=== PATIENT | female | born 1985 | race Caucasian/White ===

== ENCOUNTER 2020-09-02 10:20 | Outpatient (CLI) | payer OTHER, SELFPAY ==
[2020-09-02 10:45] VITALS: BP 124/82; PULSE 84
[2020-09-02 10:59] LABS: Basophils Percent Auto 0.3 % (0.2-1.2); Eosinophils Percent Auto 0.4 % (0-4.4); Hematocrit 37.6 % (37.0-47.0); Hemoglobin 13.1 g/dL (12.0-15.0); Immature Granulocyte Absolute 0.03 K/mm3 (0.00-0.031); Immature Granulocyte Percent A 0.3 % (0-0.5); Lymphocytes Absolute Auto 1.13 K/mm3 (0.9-3.2); Lymphocytes Percent Auto 10.6 % (18.3-44.2); Mean Corpuscular HGB Conc 34.8 g/dl (32-36); Mean Corpuscular Hemoglobin 30.3 pg (26-34); Mean Platelet Volume 10.8 fl (7.4-10.4); Monocytes Absolute Auto 0.8 K/mm3 (0.1-0.6); Monocytes Percent Auto 7.4 % (2.6-8.5); Neutrophils Absolute Auto 8.6 K/mm3 (1.3-6.7); Platelet Count Result 226 k/mm3 (150-375); Red Blood Count 4.32 M/mm3 (4.2-5.4); Red Cell Distribution Width 12.2 % (11.5-14.5); White Blood Count 10.6 K/mm3 (4.5-10.0)
[2020-09-02 11:00] VITALS: BP 123/80; PULSE 75
[2020-09-02 11:00] LABS: Add Urine Microscopic? NO; Appearance Urine Clear (Clear); Bilirubin Urine Negative (Negative); Blood Urine Negative (Negative); Color Urine Straw (Yellow); Glucose Urine UA Negative (Negative); Ketones Urine Negative (Negative); Leukocyte Esterase Ur Negative LEU/UL (NEGATIVE); Nitrate Urine Negative (Negative); Protein Urine Negative (Negative); Specific Grav Ur 1.009 (1.001-1.035); Urobilinogen Urine Negative mg/dL (<2.0)
[2020-09-02 11:14] LABS: Creatinine Urine 38.8 mg/dL; Total Protein Urine Random 13 mg/dL
[2020-09-02 11:15] VITALS: BP 124/76; PULSE 77
[2020-09-02 11:30] VITALS: BP 120/79; PULSE 78
[2020-09-02 11:30] LABS: Alanine Aminotransferase 16 U/L (4-35); Albumin Level 3.4 g/dL (3.5-5.1); Alkaline Phosphatase 110 U/L (38-126); Anion Gap 7 mmol/L (8-16); Aspartate Amino Transferase 27 U/L (14-36); Bilirubin,Total 0.5 mg/dL (0.2-1.3); Blood Urea Nitrogen 8 mg/dL (7-17); Carbon Dioxide 21 mmol/L (22-30); Chloride 106 mmol/L (98-107); Estimated Glomerular Filt Rate > 60; Glucose 81 mg/dL (65-105); Potassium 4.6 mmol/L (3.4-5.0); Sodium 134 mmol/L (137-145); Uric Acid 3.9 mg/dL (2.5-7.5)
== END 2020-09-02 11:40 | disposition home or self-care (01) ==
LOC: ANHOBOP 10:26 → ANHOBPP 10:27
PROVIDERS: Advanced Practice Midwife; PCP Internal Medicine; Visit Provider Obstetrics & Gynecology
DX: O16.3 Unspecified maternal hypertension, third trimester (principal); Z3A.39 39 weeks gestation of pregnancy
CPT/HCPCS: 36415; 59025; 80053; 81003; 82570; 84156; 84550; 85025; 87086; 87088; 99199

== ENCOUNTER 2020-09-09 06:02 | Inpatient (IN) | payer OTHER, SELFPAY ==
[2020-09-09] VITALS (204 sets, daily range): BP systolic 88–145; BP diastolic 19–108; PULSE 32–129; RESP 18; TEMP 36.3–37.4; O2SAT 75–100; BMI 31.8
[2020-09-09 06:41] LABS: Basophils Percent Auto 0.3 % (0.2-1.2); Eosinophils Absolute Auto 0.1 K/mm3 (0-0.3); Eosinophils Percent Auto 0.8 % (0-4.4); Hemoglobin 12.9 g/dL (12.0-15.0); Immature Granulocyte Absolute 0.04 K/mm3 (0.00-0.031); Immature Granulocyte Percent A 0.4 % (0-0.5); Lymphocytes Absolute Auto 1.06 K/mm3 (0.9-3.2); Lymphocytes Percent Auto 9.5 % (18.3-44.2); Mean Corpuscular HGB Conc 34.9 g/dl (32-36); Mean Corpuscular Hemoglobin 30.1 pg (26-34); Mean Corpuscular Volume 86.2 fl (80-100); Mean Platelet Volume 10.6 fl (7.4-10.4); Monocytes Absolute Auto 0.7 K/mm3 (0.1-0.6); Monocytes Percent Auto 6.1 % (2.6-8.5); Neutrophils Absolute Auto 9.3 K/mm3 (1.3-6.7); Neutrophils Percent Auto 82.9 % (45.5-73.1); Platelet Count Result 225 k/mm3 (150-375); Red Blood Count 4.29 M/mm3 (4.2-5.4); Red Cell Distribution Width 12.4 % (11.5-14.5); White Blood Count 11.2 K/mm3 (4.5-10.0)
[2020-09-09] MEDS: LACTATED RINGERS 1,000 ML 125 ML IV CONT ×2 (06:49→08:57)
[2020-09-09] MEDS: OXYTOCIN 30 UNITS/NS 500 ML 30 UNITS/500 ML BAG 6 UNITS IV CONT (06:49)
--- NOTE | 2020-09-09 07:48 | WPDOBADMIT ---
Obstetrics - Admit Note Admission Note: record reviewed. No pertinent additions to the history and/or any subsequent changes in the physical findings that are not consistent with the expected course of the were found. EIL at 40 weeks, SVE 3-4/80/-1 AROM small amount of clear odorless fluid Additions to the history and/or subsequent changes in the physical findings follow. None.
--- NOTE | 2020-09-09 08:42 | WPDANESEPPF ---
Anes - Initial Pre Proc Eval Date/Time: 09/09/20 08:42 Surgeon: Vernell Presley MD Pre Op Diagnosis: Induction of Labor Patient Data Age: 35 Gender: F Height: 1.73 m Weight: 95.09 kg Last Vital Signs Pulse 74 09/09/20 08:30 BP 121/68 09/09/20 08:30 Allergies Allergy/AdvReac Type Severity Reaction Status Date / Time No Known Allergies Allergy Verified 08/12/20 12:34 Home Medications Medication Instructions Recorded Confirmed Type PNV cmb#95-ferrous fumarate-FA 1 tablet PO DAILY 08/12/20 08/12/20 History [] levothyroxine 50 mcg PO DAILY 08/12/20 08/12/20 History sertraline 50 mg PO DAILY 08/12/20 08/12/20 History Laboratory Tests 09/09/20 09/09/20 09/09/20 06:26 06:26 06:26 WBC 11.2 K/mm3 H K/mm3 (4.5-10.0) RBC 4.29 M/mm3 M/mm3 (4.2-5.4) Hgb 12.9 g/dL g/dL (12.0-15.0) Hct 37.0 % % (37.0-47.0) MCV 86.2 fl fl (80-100) MCH 30.1 pg pg (26-34) MCHC 34.9 g/dl g/dl (32-36) RDW 12.4 % % (11.5-14.5) Plt Count 225 k/mm3 k/mm3 (150-375) MPV 10.6 fl H fl (7.4-10.4) Immature Gran % (Auto) 0.4 % % (0-0.5) Neut % (Auto) 82.9 % H % (45.5-73.1) Lymph % (Auto) 9.5 % L % (18.3-44.2) [place] % (Auto) 6.1 % % (2.6-8.5) Eos % (Auto) 0.8 % % (0-4.4) Baso % (Auto) 0.3 % % (0.2-1.2) Lymph # (Auto) 1.06 K/mm3 K/mm3 (0.9-3.2) [place] # (Auto) 0.7 K/mm3 H K/mm3 (0.1-0.6) Eos # (Auto) 0.1 K/mm3 K/mm3 (0-0.3) Baso # (Auto) 0.0 K/mm3 K/mm3 (0.0-0.1) Abs Immat Gran (auto) 0.04 K/mm3 H K/mm3 (0.00-0.031) Absolute Neuts (auto) 9.3 K/mm3 H K/mm3 (1.3-6.7) Absolute Nucleated RBC 0.0 K/mm3 K/mm3 (0.0-0.012) Nucleated RBC % 0.0 % % (0.0-0.2) RPR Pending Blood Type A Negative Antibody Screen Negative Patient hx anesthesia problems: none Family hx anesthesia problems: none [facility] Past Medical History Medical History (Updated 09/09/20 @ 08:42 by Zacarias Gomez MD) Anxiety Hypothyroidism Family History Family History (Updated 08/12/20 @ 12:38 by Norberto Diaz RN) Mother Hypothyroid Social History Social History Smoking status: Never smoker Second hand tobacco smoke exposure: No Substance use: never Spiritual care concerns: No Anes - Eval Final PreProcedure Day of Procedure 09/09/20 08:42 Patient weight: overweight Heart: regular rate and rhythm Lungs: clear to auscultation and normal air movement Airway: Mallampati scale class II Neurological: alert and oriented Last oral intake: >/= 8 hours ASA classification: II Emergent: no Anesthetic plan: proceed Anesthesia type and monitoring: regional epidural Informed Consent: The patient's anesthetic plan and its attendant risks and benefits were discussed with the patient/family/POA. Questions were solicited and answers provided to the satisfaction of the patient/family/POA.
[2020-09-09 08:57] LABS: Rapid Plasma Reagin Non-Reactive (NonReactive)
[2020-09-09] MEDS: SODIUM CHLORIDE 0.9% IV 300 ML 600 ML I-UTERINE (12:52)
--- NOTE | 2020-09-09 16:35 | P.PCNOB_ITS ---
OB - Delivery Note Procedure Delivery date: 09/09/20 Procedure: Vaginal . Intrapartal events: Extended Bradycardia Induction method: AROM and per pitocin protocol Delivery monitor: internal FHT and internal uterine Route of delivery: vacuum extraction Indication for instrumentation: nonreassuring FHR tracing Episiotomy description: None Laceration Description: Perineal - 2nd Degree Delivery repair: vicryl Specimen: No Estimated blood loss (mL): 300 Anesthesia type: Epidural Disposition: other () [place] Baby Date of : 09/09/20 Time of : 16:21 Weeks of gestation at delivery: 40 Infant gender: Female Weight (pounds): 6 Weight (ounces): 12 presentation: vertex position: Right Occiput Anterior Placenta delivery description: Spontaneous cord vessel description: 3 Vessels and Clamped/Cut score one minute: 7 score five minutes: 8 Narrative: CNM at bedside bradycardia. Kiwi placed. 1 pull through 1 contraction, no pop offs. Baby delivered and handed to nursery. Mother and baby in stable condition.
[2020-09-09] MEDS: OXYTOCIN 30 UNITS/NS 500 ML 30 UNITS/500 ML BAG 125 UNITS IV CONT (16:55)
[2020-09-09] MEDS: BENZOCAINE 20% AER SPR (*SP) 56 GM CAN 1 SPRAY TOPICAL (19:20)
[2020-09-09] MEDS: WITCH HAZEL 40 PADS 1 PAD TOPICAL (19:20)
--- NOTE | 2020-09-09 19:34 | OBPPTRN ---
Patient transferred to post room # 286 via wheelchair. Support person and present. Oriented to unit, room, information board, rooming in, admission packet and security measures. Patient verbalizes understanding.
--- NOTE | 2020-09-09 19:34 | OBPPTRN ---
Patient transferred to post room # via ( ). Support person present. Oriented to unit, room, information board, rooming in, admission packet and security measures. Patient verbalizes understanding.
[2020-09-10] MEDS: IBUPROFEN 600 MG TABLET PO ×3 (04:03→16:23)
[2020-09-10 05:09] LABS: Hematocrit 33.7 % (37.0-47.0); Hemoglobin 11.2 g/dL (12.0-15.0)
[2020-09-10] MEDS: MULTIVIT/MIN/PREN/FOL AC/IRON TABLET 1 TAB PO (06:58)
[2020-09-10] MEDS: LEVOTHYROXINE SODIUM 50 MCG TABLET PO (06:59)
[2020-09-10] MEDS: DOCUSATE SODIUM 100 MG CAPSULE PO ×2 (06:59→16:23)
--- NOTE | 2020-09-10 07:30 | PC.NURSE ---
Nipple shield provided to mother due to flat and sore nipple on left breast. Instructions given on application and cleaning of shield. Discussed nipple shield precautions and possible complications. Patient able to return demonstration on proper application of shield. Discussed the need to initiate pumping if continues to nurse with the shield. Patient verbalizes understanding.
--- NOTE | 2020-09-10 07:52 | PM.OBPNVD ---
OB - PN: Subj Subjective Date/time seen: 09/10/20 07:52 Patient comments: no complaints baby status: doing well OB - PN: Obj Data Labs CBC & Chem 7: 09/10/20 04:13 Labs: Laboratory Results - last 24 hr 09/09/20 09/10/20 09/10/20 06:26 04:13 04:13 Hgb 11.2 L Hct 33.7 L RPR Non-reactive Blood Type A Negative Antibody Screen Negative Screen Negative Baby's Blood Type O pos Baby's JOSH Negative Doses of RhIg Required 1 OB - PN A/P Plan day: 1 Plan: routine care Time Spent With Patient Time: Total time spent is greater than 50% in coordination of care (as documented) at patient's floor/unit and/or counseling patient: Time with patient: less than 15 minutes Review of Systems Review of Systems: All systems reviewed & are unremarkable except as noted in HPI and below Exam Narrative: Exam Narrative: Fundus firm and vaginal flow controlled. No lower ext redness, warmth, or edema. Negative homans. Const: General: comfortable Chest: Breast/axilla inspection: normal inspection of the breasts Resp: Effort & Inspection: normal respiratory effort Cardio: Rate: regular rate GI: GI Palp: Yes Soft to palpation Psych: Appearance: grossly normal Affect: normal affect Attitude: cooperative Thought content: Yes Normal thought content present Judgement: Good judgement present (Psych)
[2020-09-10 08:00] VITALS: BP 105/65; PULSE 58; PULSE 59; RESP 20; TEMP 36.8; TEMP 37.1
[2020-09-10] MEDS: RHO(D) IMMUNE GLOBULIN 300 MCG SYRINGE IM (12:05)
--- NOTE | 2020-09-10 13:22 | WPDANLDPN2 ---
Anes-Prog Note L&D Date/Time: 09/10/20 13:22 Comfortable throughout: labor and delivery Neuraxial method: epidural Epidural/Spinal procedure site: clean & non-tender Neuro status: Neuro function grossly intact. Cardiovascular status: normal Respiratory status: normal Airway patency: baseline Mental status: baseline Post-Op hydration status: normal Vital Signs: Last Vital Signs Temp 98.8 F 09/10/20 08:00 Pulse 59 L 09/10/20 08:00 Resp 20 09/10/20 08:00 BP 105/65 09/10/20 08:00 Pulse Ox 98 09/09/20 19:40 Pain score (VAS): 0/10 I/O: Intake & Output 09/09/20 09/10/20 09/10/20 23:59 07:59 15:59 Intake Total 1000 Output Total 78 Balance 922 Patient feedback: Patient satisfied with anesthetic care.
[2020-09-10] MEDS: BENZOCAINE 20% AER SPR (*SP) 56 GM CAN 1 SPRAY TOPICAL (16:23)
[2020-09-10] MEDS: WITCH HAZEL 40 PADS 1 PAD TOPICAL (16:23)
[2020-09-10 19:45] VITALS: BP 106/67; PULSE 71; RESP 16; TEMP 36.4
--- NOTE | 2020-09-11 07:00 | PC.NURSE ---
PT introductions made and plan of care discussed per post , pain management, breast/bottle feeding, daily care activities and pending discharge to home. PT verbalized understanding of such care.
[2020-09-11 07:40] VITALS: BP 110/72; PULSE 59; RESP 18; TEMP 36.6; O2SAT 98
[2020-09-11] MEDS: LEVOTHYROXINE SODIUM 50 MCG TABLET PO (07:42)
--- NOTE | 2020-09-11 08:27 | PM.OBPNVD ---
OB - PN: Subj Subjective Date/time seen: 09/11/20 08:27 Patient comments: no complaints baby status: doing well OB - PN: Obj Data Labs CBC & Chem 7: 09/10/20 04:13 Labs: Laboratory Results - last 24 hr 09/10/20 04:13 Blood Type A Negative Antibody Screen Negative Screen Negative Baby's Blood Type O pos Baby's JOSH Negative Doses of RhIg Required 1 OB - PN A/P Plan day: 2 Plan: routine care and discharge home (F/U in 4 weeks) Time Spent With Patient Time: Total time spent is greater than 50% in coordination of care (as documented) at patient's floor/unit and/or counseling patient: Time with patient: less than 15 minutes Review of Systems Review of Systems: All systems reviewed & are unremarkable except as noted in HPI and below Exam Narrative: Exam Narrative: Fundus firm and vaginal flow controlled. No lower ext redness, warmth, or edema. Negative homans. Const: General: comfortable Chest: Breast/axilla inspection: normal inspection of the breasts Resp: Effort & Inspection: normal respiratory effort Cardio: Rate: regular rate GI: GI Palp: Yes Soft to palpation Psych: Appearance: grossly normal Affect: normal affect Attitude: cooperative Thought content: Yes Normal thought content present Judgement: Good judgement present (Psych)
[2020-09-11 09:45] VITALS: PULSE 59; RESP 18; O2SAT 98
[2020-09-11] MEDS: SERTRALINE HCL 50 MG TABLET PO (09:58)
[2020-09-11] MEDS: DOCUSATE SODIUM 100 MG CAPSULE PO (09:58)
--- NOTE | 2020-09-11 10:30 | PC.NURSE ---
Consulted with patient, mother reports she is using a nipple shield for all feedings and has tenderness with latch and on and off during the feeding. Mother is pumping and supplementing after all feedings Discussed nipple shield precautions and possible complications. Instructions given on application and cleaning of shield. Patient able to return demonstration on proper application of shield. Discussed the need to initiate pumping if continues to nurse with the shield. Patient verbalizes understanding. Reviewed infant feeding cues, frequencies, duration of feedings, feeding elimination flow sheet, and signs of adequate intake. Demonstrated stimulation techniques to wake for feeding. Assisted with infant to breast with out shield. Nipples have a low profile, demonstrated how to roll out nipple before attempting latch. Reviewed positioning/alignment in cross cradle, holding breast in U hold and guided asymmetrical latch on. Discussed rational for each. Within a few attempts, infant was able to latch correctly. nursed sleepily with good bursts of steady draws and occasional swallowing followed with long pausing. Reviewed signs of a correct latch, effective nursing and suck swallow ratio. Infant was able to maintain latch without discomfort to mother. Nipple care reviewed. Suggested to stimulate while feeding to keep awake and nursing effectively for increased intake and to assist with maintaining deep latch. Instructed mother to call out for RN assistance if she is unable to latch infant for feeding or she has discomfort with nursing. Instructed feeding should be initiated three hours from start of last feeding or if feeding cues are noted before. Mother voiced understanding of information shared. Mother is able to independently latch with appropriate positioning/alignment, if unable to latch without shield or has discomfort advised to use shield. She is feeding as required and waking infant to feed if needed. has had several feedings at the breast with shield followed with supplementation in the past 24 hours, and is currently meeting outcomes for weight, output, jaundice and feeding frequencies. Mother states she feels confident to continue current feeding plan at home. Discussed when may need to increase supplementation and when ready to decrease/discontinue supplementation. Advised not to discontinue until discussion with her ICP. Reviewed transition to breast milk, signs of adequate intake, and engorgement/relief. Instructed to call ICP if intake/output less than required. Reviewed regular medications mother is taking. Information provided per Mayda. Reviewed community resources on the [employer] website and in the Mom/Baby guide. Information on outpatient services provided. Mother has no further questions at this time.
--- NOTE | 2020-09-11 12:15 | PC.NURSE ---
PT received discharge instructions per protocol and verbalized understanding of such care
--- NOTE | 2020-09-11 12:57 | PC.NURSE ---
PT discharged to home ambulatory accompanied by spouse and and taken to waiting car. follow up appts confirmed
--- NOTE | 2020-09-12 03:07 | PM.OBDSVD ---
DS: Admitting Diagnosis Admitting Diagnosis Admitting Diagnosis: Induction of Labor OB - DS: Summary OB Procedures : None OB Procedures Intrapartum: Spontaneous Vag Delivery OB Procedures: : None Time Spent with Patient Time attestation: Total time spent providing and/or coordinating discharge services: Discharge Plan Discharge Attending physician on discharge: Vernell Presley Discharging Clinician: Lisandra Augustin Patient Disposition: Home, Self-Care Activity: pelvic rest Diet: as tolerated Discharge Instructions: Education: Mom and Baby Guide Given to: Mother Follow-Up: Call your delivering provider's office for an appointment to be seen in: 4 Weeks Mom and baby should come to the [facility] for the follow-up appointment. Appointment Date/Time: September 12, 2020 at 11:00 am What to expect at your follow-up visit: Blood Pressure Check Call [phone] if you are unable to keep your appointment time. BREAST CARE: * Wear a snug supportive bra. * For engorgement discomfort: Breast Feeding: * Apply warm moist washcloths * Express milk as needed to relieve engorgement * Wear loose clothing Bottle Feeding: * May apply ice packs * For sore nipples: * Identify correct latch-on * Apply warm moist washcloths before and after nursing * Air dry nipples after nursing * May apply Lansinoh cream to nipples PERINEAL CARE * Until bleeding stops, use your ruma bottle after urinating * Change your pad frequently throughout the day * You may take sitz baths several times a day (fill your bathtub with warm water and soak for 20 minutes.) Do NOT bathe in the water * No tub baths until seen by your physician - You may shower ACTIVITY: * Rest as much as possible. * Do not exercise or lift anything heavier than your baby (such as laundry or other children.) * Avoid stairs or driving as much as possible. * Do not put anything into the vagina. No douching, tampons, or sexual activity until seen by physician. NOTIFY PHYSICIAN IF YOU HAVE ANY QUESTIONS OR IF ANY OF THE FOLLOWING SYMPTOMS OCCUR: * If your perineum becomes red, swollen, or more painful than what you have experienced in the hospital. * If your vaginal bleeding becomes foul smelling. * If your vaginal bleeding becomes more heavy than a period or if your bleeding changes from pink to bright red. However, you may pass an occasional walnut-sized clot once or twice for the first week . * If you experience a sharp, shooting pain in you calves. * If you discover a hard, reddened area on your breast or if you experience flu-like symptoms. * If you have a fever of 100.4 or greater DIET: * Eat regular, well-balanced meals. * Drink plenty of fluids daily. If , drink to thirst. Patient Instructions: Antibiotic Form Stand Alone Forms: General Discharge Information Follow-up/Referrals: Leeann Barone CNM [Certified Nurse Medical Transcriptionist] - Discharge Medications: Continued levothyroxine 50 mcg Tablet 50 mcg PO DAILY RF: 0 sertraline 50 mg Tablet 50 mg PO DAILY RF: 0 PNV cmb#95-ferrous fumarate-FA [] 28 mg iron- 800 mcg Tablet 1 tablet PO DAILY RF: 0 Date of admission: 09/09/20 06:02 Primary Care Provider: AnyaIrvin Admitting Provider: Vernell Presley Attending physician on admission: Vernell Presley Condition: Stable
[2020-09-12 11:52] VITALS: BP 118/82; PULSE 67; RESP 20; TEMP 36.8; O2SAT 100
--- OUTSIDE RECORDS SUMMARY | 2020-09-16 10:01 | XMS_ITS ---
:1985 Author Care Team Providers Name Role Phone Lorenzo Presley Primary Care Provider Unavailable Allergies Code Code System Name Reaction Severity Status Onset NKDA ? Medications Name Status Start Date Stop Date ? ? Boostrix Tdap 2.5 Lf unit-8 mcg-5 Active ? Not available Lf/0.5 mL intramuscular syringe Flucelvax Quad 60 mcg (15 mcg Completed ? 04/24/2020 x 4)/0.5 mL intramuscular susp Fluzone Quad 0567-2775 (PF) 60 mcg (15 Active ? Not available mcg x 4)/0.5 mL IM syringe levothyroxine 25 mcg tablet Active ? Not available + DHA Active ? Not available sertraline 50 mg tablet Active ? Not avai lable Problems Name Status Onset Date Source ? Active 03/07/2020 ? 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 Procedures Date Name Performed by ? ? Repair of Tendo Achilles Information not available ? Repair of Tendo Achilles Information not available 04/24/2020 US, Obstetric, 2Nd or 3Rd Trimester Delisa nieves [address] [place] [address] (Work [address]) Results Lab Results Date Name Specimen Result Interpretation Description Value Range Status Address ? 08/12/2020 TSH, Serum ? TSH Reflex 1.13 mU/L 0.27-4.2 0 Final [facility] or Plasma to FT4
--- OUTSIDE RECORDS SUMMARY | 2020-09-16 10:01 | XMS_ITS | Encounter Summary ---
:1985 Author Reason for Visit OB visit 35wks 2days Assessment and Plan 1. Routine care Discussion Note: None recorded.Patient educational handouts: No information available. Plan of Care Reminders Provider Appointments Repeat on or around Raul Ojeda 10/20/2020 CNM Lab None ? ? recorded. Referral None ? ? recorded. Procedures None ? ? recorded. Surgeries None ? ? recorded. Imaging None ? ? recorded. Medications Name Start Date ? ? Boostrix Tdap 2.5 Lf unit-8 mcg-5 Lf/0.5 mL intramuscu lar syringe ? Fluzone Quad (PF) 60 mcg (15 mcg x 4)/0.5 mL IM syringe ? levothyroxine 25 mcg tablet ? + DHA ? sertraline 50 mg tablet ? Medications Administered None recorded. Vitals Height Weight BMI Blood Pressure 5 ft 8 in 206 lbs 31.3 kg/m2 110/84 mm[Hg] Results Lab Results None recorded. Allergies Code Code System Name Reaction Severity Onset NKDA ? ? ? Problems Name Status Onset Date Source ? Active 03/07/2020
--- OUTSIDE RECORDS SUMMARY | 2020-09-16 10:01 | XMS_ITS | Encounter Summary ---
:1985 Author Reason for Visit OB visit 39wks 2days Assessment and Plan 1. Routine care [...] BMI Blood Pressure 5 ft 8 in 213 lbs 32.4 kg/m2 128/92 mm[Hg] Results Lab Results None recorded. Allergies Code Code System Name Reaction Severity Onset NKDA ? ? ? Problems Name Status Onset Date Source ? Active 03/07/2020 ?
--- OUTSIDE RECORDS SUMMARY | 2020-09-16 10:01 | XMS_ITS ---
[...] x 4)/0.5 mL intramuscular susp Fluzone Quad 8035-9718 (PF) 60 mcg (15 Active ? Not [...] 3Rd Trimester Delisa nieves [address] [place] [address] (Work [address]) Results Lab Results Date Name Specimen Result Interpretation Description Value Range Status Address ? 08/12/2020 TSH, Serum ? TSH Reflex 1.13 mU/L 0.27-4.2 0 Final [facility] or Plasma to FT4
--- OUTSIDE RECORDS SUMMARY | 2020-09-16 10:01 | XMS_ITS | Encounter Summary ---
:1985 Author Reason for Visit OB visit 38wks 2days Assessment and Plan 1. Routine care [...] BMI Blood Pressure 5 ft 8 in 211 lbs 32.1 kg/m2 118/80 mm[Hg] Results Lab Results None recorded. Allergies Code Code System Name Reaction Severity Onset NKDA ? ? ? Problems Name Status Onset Date Source ? Active 03/07/2020 ?
--- OUTSIDE RECORDS SUMMARY | 2020-09-16 10:01 | XMS_ITS | Encounter Summary ---
:1985 Author Reason for Visit OB visit OB [id number] EDC 09/07/2020 LMP 12/02/2019 Assessment and Plan Assessment Note Patient is __33_weeks . Dis cussed plan. 1. Routine care Discussion Note: None recorded.Patient [...] ft 8 in 206 lbs 31.3 kg/m2 122/85 mm[Hg] Results Lab Results None recorded. Allergies Code Code System Name Reaction Severity Onset NKDA ? ? ? Problems
--- OUTSIDE RECORDS SUMMARY | 2020-09-16 10:01 | XMS_ITS | Encounter Summary ---
:1985 Author Reason for Visit OB visit OB [id number] EDC 09/07/2020 LMP 11/21/2019 Assessment and Plan Assessment Note Patient is __28_weeks . Dis cussed plan. 1. Routine care [...] BMI Blood Pressure 5 ft 8 in 196 lbs 29.8 kg/m2 118/76 mm[Hg] Results Lab Results None recorded. Allergies Code Code System Name Reaction Severity Onset NKDA ? ? ? Problems
--- OUTSIDE RECORDS SUMMARY | 2020-09-16 10:01 | XMS_ITS | Encounter Summary ---
:1985 Author Reason for Visit OB visit 36wks 2days Assessment and Plan 1. Routine care ? TSH, serum or plasma Discussion Note: None recorded.Patient educational handouts: No information available. Plan of Care Reminders Provider Appointments Repeat on or around Lisandra Augustin CNM Pap 10/20/2020 Lab TSH, 08/12/2020 [facility] Serum or Plasma [facility]) Referral None ? ? recorded. Procedures None [...] BMI Blood Pressure 5 ft 8 in 208 lbs 31.6 kg/m2 114/72 mm[Hg] Results Lab Results Date Name Specimen Result Interpretation Description Value Range Status Address ? 08/12/2020 TSH, Serum ? TSH 1.13 0.27-4.20 Final [facility] o
--- OUTSIDE RECORDS SUMMARY | 2020-09-16 10:01 | XMS_ITS | Encounter Summary ---
:1985 Author Reason for Visit OB visit OB [id number] EDC 09/07/2020 LMP 12/02/2019 Assessment and Plan [...]
--- OUTSIDE RECORDS SUMMARY | 2020-09-16 10:01 | XMS_ITS | Encounter Summary ---
:1985 Author Reason for Visit OB visit 37wks 2days Assessment and Plan 1. Routine care [...] ft 8 in 211 lbs 32.1 kg/m2 122/78 mm[Hg] Results Lab Results None recorded. Allergies Code Code System Name Reaction Severity Onset NKDA ? ? ? Problems Name Status Onset Date Source ? Active 03/07/2020
--- OUTSIDE RECORDS SUMMARY | 2020-09-16 10:01 | XMS_ITS | Encounter Summary ---
:1985 Author Reason for Visit OB visit Assessment and Plan Assessment Note Patient is ___weeks . Discu ssed plan. 1. Routine care Discussion Note: None [...] BMI Blood Pressure 5 ft 8 in 200 lbs 30.4 kg/m2 120/74 mm[Hg] Results Lab Results None recorded. Allergies Code Code System Name Reaction Severity Onset NKDA ? ? ? Problems Name Status Onset Date Source ?
--- OUTSIDE RECORDS SUMMARY | 2020-09-16 10:02 | XMS_ITS | Encounter Summary ---
:1985 Author Reason for Visit OB visit OB [id number] EDC 09/07/2020 LMP 11/21/2019 Assessment and Plan [...]
== END 2020-09-11 12:57 | disposition home or self-care (01) | DRG 807 ==
LOC: ANHLDR 06:05 → ANHOB2 19:45
PROVIDERS: Advanced Practice Midwife; Admitting Provider Obstetrics & Gynecology; PCP Internal Medicine; Visit Provider Obstetrics & Gynecology
DX: O99.284 Endocrine, nutritional and metabolic diseases complicating childbirth (principal); Z37.0 Single live birth; Z3A.40 40 weeks gestation of pregnancy; O99.344 Other mental disorders complicating childbirth; F41.9 Anxiety disorder, unspecified; E03.9 Hypothyroidism, unspecified; O36.8330 Maternal care for abnormalities of the fetal heart rate or rhythm, third trimester, not applicable or unspecified; O70.1 Second degree perineal laceration during delivery
CPT/HCPCS: 36415; 85014; 85018; 85025; 85461; 86592; 86850; 86900; 86901; 90384; A9270; J2590; J2790; J2795; J7030; J7120

== ENCOUNTER → 2023-10-07 08:54 | Outpatient (CLI) | payer BC, SELFPAY ==
--- NOTE | ~2023-10-07 | MMUS_ITS ---
EXAMINATION: MM diagnostic amanda BI w cierra, US breast RT limited HISTORY: Palpable lump in the upper outer quadrant of the right breast TECHNIQUE: Craniocaudal, mediolateral, and mediolateral oblique 3-D tomosynthesis images of the timothy ts were performed and synthetic 2-D images were generated. CAD analysis was submitted and interpreted . High resolution limited right breast ultrasound was performed. COMPARISON: None, baseline BREAST PARENCHYMAL COMPOSITION: There are scattered areas of fibroglandular density. FINDINGS: MAMMOGRAPHIC FINDINGS: No suspicious mass, calcification, or architectural distortion are identified in either breast to sug gest malignancy. No mammographic correlate is identified for the reported palpable abnormality of the right breast. ULTRASOUND: No sonographic correlate is identified for the reported palpable abnormality of the right breast. IMPRESSION: 1. No specific mammographic or sonographic correlate is identified for the reported palpable abnormal ity of concern in the right breast. Further evaluation at this time should be based on clinical asses sment. Continued follow-up physical examination is recommended. 2. Recommend routine screening mammography beginning at age 40. BI-RADS Category 1: Negative Reviewed, dictated and finalized at location A. TLE OPERATOR IMPRESSION: 1. No specific mammographic or sonographic correlate is identified for the repo rted palpable abnormality of concern in the right breast. Further evaluation at this time should be based on clinical assessment. Continued follow-up physical examination is recommended. 2. Recommend routine screening mammography beginning at age 40. BI-RADS Category 1: Negative
== END ==
PROVIDERS: PCP Nurse Practitioner; Visit Provider Nurse Practitioner
DX: N63.11 Unspecified lump in the right breast, upper outer quadrant (principal)
CPT/HCPCS: 76642; 77062; 77066; G0279